=== PATIENT | female | born 1970 | race Caucasian/White ===

== ENCOUNTER 2025-02-13 01:05 | Emergency (ER) | payer BC, SELFPAY ==
[2025-02-13 01:13] VITALS: BP 148/118
--- NOTE | 2025-02-13 01:26 | ED.GENMED ---
History of Present Illness
General
Chief Complaint: Abdominal Symptoms
Time Seen by Provider: 02/13/25 01:26
History of Present Illness
History of Present Illness:
PAST MEDICAL HISTORY AND REVIEW OF OLD RECORDS
- The patient is had a hysterectomy in the past. She also has a history of anxiety. No old records available for review in [facility]
Note:
CHIEF COMPLAINT(S)
Nausea and tingling sensation in arms.
HISTORY OF PRESENT ILLNESS
The patient is a 54-year-old female presenting with significant nausea and a tingling sensation described as 'pins and needles' in both arms. The patient notes that the tingling is not associated with any particular activity or position. The nausea
has been persistent despite attempts at home management, noting that it is particularly bothersome and impacting her daily life. She had a prescription for nausea medication, which provided minimal relief with delayed onset and short duration of
action. The patient has denied significant vomiting, describing it as 'very little.' The patient mentioned she hadnt taken her regular medication for a week, missing weeks at a time prior to last week.
The patient also noted the presence of bumps on the skin, which appeared after sun exposure but were neither itchy nor painful. She recently visited an urgent care center where no blood work was done, although the physician noted the rash was
possibly related to sun exposure.
The patient has a surgical history of multiple abdominal surgeries, including a hysterectomy and procedures related to dermoid cysts removal during her two pregnancies. She reports no history of bowel obstructions or severe pain related to these
surgeries.
PAST MEDICAL AND SURGICAL HISTORY
The patient has undergone multiple abdominal surgeries due to dermoid cyst removal during previous pregnancies. Her surgical history includes a hysterectomy and two additional procedures associated with the removal of cysts.
EXTERNAL RECORDS REVIEWED
The patient had a blood work order with her primary care physician, but the results were not yet available at the time of this visit.
CHRONIC MEDICAL CONDITIONS SIGNIFICANTLY AFFECTING CARE
The patient is on a regular medication regimen, which she recently missed, although specific medication details were not mentioned.
SOCIAL HISTORY
The patient reports no use of marijuana.
PHYSICAL EXAM
General: Alert, no acute distress.
Skin: Warm, dry. Some subtle small papules to the upper extremities described as nonpruritic
Cardiovascular: Normal peripheral perfusion, no edema.
Respiratory: Respirations are non-labored.
Abdomen: Nondistended; minimal diffuse abdominal tenderness
Neurological: Alert and oriented to person, place, time, and situation, No focal neurological deficit observed.
PLAN
1. Perform a CAT scan to rule out any serious underlying causes contributing to nausea.
2. Administer intravenous fluids to help alleviate dehydration and provide symptomatic relief.
3. Obtain blood work to assess any potential abnormalities.
4. Administer Reglan for nausea management.
5. Discuss medication adherence and assess the potential impact on current symptoms.
DIFFERENTIAL DIAGNOSIS
The Differential Diagnosis includes, in no particular order and is not limited to:
1. Medication side effects or withdrawal
2. Anxiety-related somatic symptoms
3. Viral gastroenteritis
4. Food poisoning
5. Peptic ulcer disease
6. Gastroesophageal reflux disease
7. Pancreatitis
8. Small bowel obstruction due to adhesions
9. Electrolyte imbalance
10. Dermatological reaction with secondary systemic symptoms.
RADIOLOGY
- CT shows no acute abnormality, there is no bowel obstruction
LABS
- White count and hemoglobin are normal, bicarb is 21, urinalysis shows 3+ ketones and she was given IV fluids. Urinalysis does not show any clear evidence of infection
SUMMARY OF ENCOUNTER
The patient is a 54-year-old female who presented to the emergency department with significant nausea and a tingling sensation in both arms. The nausea was persistent and interfering with her daily activities. After evaluating the patient, a CT scan
was performed, which showed no signs of bowel obstruction, a concern due to her surgical history. Incidental findings of diverticulosis were noted but deemed not contributory to her current symptoms. Urinalysis did not show signs of infection, but
it did reveal ketones, likely due to dehydration. The patient was administered intravenous fluids, Benadryl, and metoclopramide (Reglan) in the emergency department, which provided significant relief from her nausea.
DISPOSITION
Discharge
ASSESSMENT
The patients symptoms appear to be related to medication withdrawal or side effects, potentially aggravated by dehydration and missed doses of medication. Her symptoms improved with intravenous fluids and medication in the ED.
EMERGENCY TREATMENTS ADMINISTERED
- Intravenous fluids
- Metoclopramide (Reglan)
- Diphenhydramine (Benadryl)
PLAN
The plan is to discharge the patient with a short-term prescription for metoclopramide to manage her nausea, advising caution with prolonged use due to potential side effects. She is advised to consider using diphenhydramine at home with
metoclopramide if needed. The patient is encouraged to discuss her medication regimen with her primary care physician to address any issues with adherence or side effects.
INDEPENDENT REVIEW OF LABS AND INTERPRETATION OF TESTS
My independent review of the urinalysis indicates the presence of ketones, which could be attributed to dehydration. My independent CT scan interpretation reveals no signs of bowel obstruction and incidental diverticulosis.
PATIENT EDUCATION AND COUNSELING
The patient was educated about the potential side effects and risks of long-term use of metoclopramide and the importance of medication adherence. The possibility of dehydration contributing to her symptoms was discussed, emphasizing adequate
hydration.
FOLLOW-UP INSTRUCTIONS
The patient is advised to follow up with her primary care physician to discuss her medication regimen and evaluate her symptoms further. She should monitor her symptoms and seek care if they worsen.
MEDICATION RECONCILIATION
- Metoclopramide (Reglan): Prescription for short-term use provided.
- Diphenhydramine (Benadryl): Advised for use alongside metoclopramide if necessary.
MEDICAL DECISION MAKING
- Number and Complexity of Problems Addressed: Chronic conditions affecting care include post-operative changes and medication adherence issues.
- Data:
Category 1: External record reviewed included the patients urinalysis and CT scan results.
Category 2: None.
Category 3: The management plan was discussed with the patient considering her medication history and response to ED treatment.
- Risk: Prescription medication was prescribed, including metoclopramide, for short-term management of nausea.
DIAGNOSIS
- Nausea with ICD-10 code R11.0
- Tingling sensation in arms, likely secondary to medication or dehydration with ICD-10 code R20.2
- Dehydration with ICD-10 code E86.0
UPDATE
- Patient feels markedly improved after Reglan/Benadryl and IV fluids were given. Will give short course of Reglan as outpatient.
Phy Exam
Physical Exam
Physical Exam:
See HPI
Course
Orders/Labs/Results
Orders:
Orders
02/13/25 01:24
IV Insert/Care/Rem.- Treatment PRN
02/13/25 01:42
CT Abd/pelvis W Iv Cont Urgent
Comment:
Reason For Exam: persistent nausea; hysterectomy; some diffuse pain
0.9% Sodium Chloride 1000 ml [Nss] 1,000 ml IV BOLUS
Diphenhydramine [Benadryl] 25 mg IV NOW STA
Metoclopramide [Reglan] 10 mg IV NOW STA
02/13/25 01:49
Complete Blood Count/With Diff Urgent
Comprehensive Metabolic Panel Urgent
Lipase Urgent
Urinalysis Reflex To Culture Urgent
Date Specimen was Collected: 02/13/25
Time Specimen was Collected: 01:24
Urine Microscopic Reflex Cult Urgent
Urine Culture Urgent
VALENTINO Source: U
Specimen Description:
Date Specimen was Collected: 02/13/25
Time Specimen was Collected: 01:24
Abnormal Lab Results
02/13/25
01:49
Carbon Dioxide 21 L mmol/L
(22-30)
Creatinine 0.5 L mg/dL
(0.6-1.0)
Glucose 118 H mg/dl
(70-99)
Urine Ketones 3+ A
(Negative)
Ur Occult Blood Reflex 1+ A
(Negative)
Leukocyte Esterase Rfl 2+ A
(Negative)
Urine Bacteria (Reflex) Few A
(Negative)
02/13/25 01:49
02/13/25 01:49
Vital Signs
Initial and Last Documented VS:
Initial Vital Signs
Temp Pulse Resp BP Pulse Ox
36.6 C 105 20 148/118 97
02/13/25 01:13 02/13/25 01:13 02/13/25 01:13 02/13/25 01:13 02/13/25 01:13
Last Documented Vital Signs
Temp Pulse Resp BP Pulse Ox
36.6 C 106 20 125/68 95
02/13/25 01:13 02/13/25 02:46 02/13/25 02:46 02/13/25 02:46 02/13/25 02:46
*Pulse Oximetry
SaO2: 97
Oxygen Mode of Delivery: Room air
Patient hypoxic: no
*Critical Care Note
Total Time (30-74mins, 75-104mins- exclusive of procedures): Not Applicable
ED Attending Note
-
Portions of this chart may have been created with voice recognition software.� Occasional wrong word or��sound alike� substitutions may have occurred due to the inherent limitations of voice recognition software.
Discharge Plan
Departure
Patient Disposition: Home (Routine Discharge)
Date of Disposition: 02/13/25
Time of Disposition: 03:50
Patient with high blood pressure during this ER visit?: Yes
Discharge Problem:
Nausea
Instructions: Nausea and Vomiting, Adult (DC), BLOOD PRESSURE
Prescriptions:
New
metoclopramide HCl [Reglan] 10 mg tablet
10 mg PO Q8HPRN PRN (Reason: nausea and vomiting) Qty: 15 0RF
No Action
latanoprost 0.005 % Drops
1 drp OPHTHALMIC (EYE) DAILY
Wegovy
2.4 mg SC WEEKLY
Referrals:
Ibrahima Lopez MD [Family Provider, Internal Medicine]
Activity Restrictions/Additional Instructions:
The cause of your nausea may be related to the Wegovy use. I recommend you talk to your prescribing doctors about this. Your basic blood work is unremarkable. Urinalysis does show some ketones which can commonly be seen with
starvation/dehydration. We gave you a liter of fluid tonight. The CAT scan did not show any clear cause for your pain. There is no sign of bowel obstruction or any surgical emergency. Since you seem to responded to Reglan tonight, I
electronically sent a prescription to your pharmacy for a few more days of Reglan. Consider taking Reglan with Benadryl. Return here if worse or for other concerns.
Interventions
Interventions:
*Risk Screen - Suicide Last Done: 02/13/25 01:16
*General Assessment Last Done: 02/13/25 02:04
*Neglect/Abuse Screening Last Done: 02/13/25 01:16
*ED- Fall Risk Assessment Last Done: 02/13/25 01:16
*ED COVID-19 Vaccine History Last Done: 02/13/25 02:03
YL-Cncscn-Pcrhltxznl Assessment Last Done: 02/13/25 02:04
Discharge Date and Time
Print Language: ERITREAN
[2025-02-13] MEDS: NSS 1000 IV (01:54)
[2025-02-13] MEDS: BENADRYL 25 MG IV (01:55)
[2025-02-13] MEDS: REGLAN 10 MG IV (01:55)
[2025-02-13 02:02] LABS: Urine Character Clear (Clear)
[2025-02-13 02:03] VITALS: BMI 29.8
[2025-02-13 02:04] LABS: Hematocrit 39.8 % (37.0-47.0); Hemoglobin 13.7 g/dL (12.0-16.0); Mean Corp Hgb Conc. 34.4 g/dL (33.0-37.0); Mean Corpuscular Volume 82.2 fL (81.0-99.0); Platelet Count 260 10^3/uL (130-400); Red Cell Dist. Width 12.4 % (11.5-14.5)
[2025-02-13 02:09] VITALS: BP 121/88
[2025-02-13 02:13] LABS: Urine Red Blood Cell None Seen /HPF (0-2)
[2025-02-13 02:26] LABS: ALT (SGPT) 14 U/L (0-35); AST (SGOT) 19 U/L (14-36); Albumin 4.6 g/dl (3.5-5.0); Alkaline Phosphatase 65 U/L (38-126); Blood Urea Nitrogen 10 mg/dl (7-17); Calcium 9.1 mg/dl (8.4-10.2); Carbon Dioxide 21 mmol/L (22-30); Chloride 105 mmol/L (98-107); Estimated Creatinine Clearance 100 ml/min; Glucose 118 mg/dl (70-99); Lipase 64 U/L (23-300); Potassium 3.9 mmol/L (3.5-5.1); Sodium 136 mmol/L (135-145); Total Protein 7.5 g/dl (6.3-8.2); eGFR > 60.00
[2025-02-13 02:46] VITALS: BP 125/68
[2025-02-13 04:18] LABS: Absolute Neutrophils -Man Diff 3.2 10^3/uL (1.4-6.5); Platelets Checked Yes
[2025-02-13 04:19] LABS: Normal RBC Morphology Yes; Total Cells Counted 100
== END 2025-02-13 04:13 | disposition home or self-care (01) ==
LOC: EMR 01:05
PROVIDERS: EMERGENCY PHYSICIAN Emergency Medicine; FAMILY PHYSICIAN Internal Medicine
DX: R11.0 Nausea (principal); R03.0 Elevated blood-pressure reading, without diagnosis of hypertension; Z90.710 Acquired absence of both cervix and uterus; E86.0 Dehydration
CPT/HCPCS: 99285; 96374; 96375; 96361; 74177; 80053; 81003; 81015; 83690; 85025; 87086; Q9967

== ENCOUNTER 2025-02-16 03:03 | Inpatient (IN) | payer BC, SELFPAY ==
[2025-02-15 21:17] VITALS: BMI 28.9
--- NOTE | 2025-02-15 21:19 | EDRN ---
Pt complains of nausea, trouble eating. Pt has not eaten much in past week. Pt vomited yesterday after trying to eat. Pt seen in this ED 3 days ago for same complaint and has not gotten better. Pt is on wegovy and usually takes it on Sunday. Pt
did not take the dose 2 days ago thinking it may be contributing to her symptoms however pt has been taking it for over a year. No abd pain. No vomiting today. Pt was prescribed reglan which she last took at 0400 with excedrin. Reglan does help
with nausea. No cp, sob, fever/chills/cough, urinary symptoms, diarrhea/constipation. Pt able to drink a little since but unable to eat much.
[2025-02-15 21:27] VITALS: BP 135/85
[2025-02-15 21:49] LABS: Hematocrit 37.4 % (37.0-47.0); Hemoglobin 13.5 g/dL (12.0-16.0); Mean Corp Hgb Conc. 36.1 g/dL (33.0-37.0); Mean Corpuscular Volume 80.4 fL (81.0-99.0); Platelet Count 325 10^3/uL (130-400); Red Cell Dist. Width 12.0 % (11.5-14.5)
[2025-02-15] MEDS: TYLENOL 1000 MG PO (21:50)
[2025-02-15] MEDS: NSS 1000 IV (21:50)
[2025-02-15 22:00] VITALS: BP 107/85
[2025-02-15 22:01] LABS: ALT (SGPT) 22 U/L (0-35); AST (SGOT) 21 U/L (14-36); Albumin 4.5 g/dl (3.5-5.0); Alkaline Phosphatase 62 U/L (38-126); Blood Urea Nitrogen 10 mg/dl (7-17); Calcium 9.3 mg/dl (8.4-10.2); Carbon Dioxide 25 mmol/L (22-30); Chloride 94 mmol/L (98-107); Estimated Creatinine Clearance 98 ml/min; Glucose 109 mg/dl (70-99); Lipase 71 U/L (23-300); Potassium 3.5 mmol/L (3.5-5.1); Sodium 126 mmol/L (135-145); Total Protein 7.5 g/dl (6.3-8.2); eGFR > 60.00
[2025-02-15 22:02] LABS: COVID-19 Antigen Negative (Negative)
[2025-02-15 22:21] LABS: Urine Character Clear (Clear)
[2025-02-15 22:38] LABS: Nucleated Red Blood Cells % 0 %
--- NOTE | 2025-02-15 22:42 | ED.GENMED ---
History of Present Illness
General
Chief Complaint: Abdominal Symptoms
Source: patient, records and spouse
Exam Limitations: none
Time Seen by Provider: 02/15/25 22:16
Nursing documentation reviewed up to this point in time: agreed with
History of Present Illness
History of Present Illness:
54 female returns with nausea vomiting decreased p.o. intake, did not know she had a fever, seen here few days ago with similar complaints had blood work and a CAT scan discharged to home has been feeling well for about a week or so symptoms have
progressively worsening, no sick contacts no travel had a red rash when she was at the beach, no known tick bites, no bull's-eye rash, she vapes, does not drink on no meds, mild headache mild dizziness feeling better after some fluids and Tylenol
Review of Systems
Review of Systems
All Other Systems: Not applicable
Constitutional: Reports weight loss and fatigue; Denies fever
Respiratory: Reports no symptoms
ABD/GI: Reports nausea and vomiting; Denies abdominal pain
Musculoskeletal: Reports muscle pain
Skin: Reports rash
Neurological: Reports dizzy and headache
Hematologic/Lymphatic: Denies bleeding or bruising
Psychiatric: Reports no symptoms
Phy Exam
Physical Exam
Physical Exam:
Physical Exam
General: Nontoxic 54 female febrile mild distress
Neck: Lips are slightly dry
Heart: Tachycardia
Lungs: no acute respiratory distress. clear bilaterally
Abdomen: Not tender
Neuro: alert and oriented. no focal neurological deficits
Skin: no rash
Psychiatric: well kept. interactive and cooperative
Extremities: no edema.
Course
Orders/Labs/Results
Orders:
Orders
02/15/25 21:23
IV Insert/Care/Rem.- Treatment PRN
02/15/25 21:30
COVID-19 Antigen Urgent
Source: Nasal Swab
Complete Blood Count/With Diff Urgent
Comprehensive Metabolic Panel Urgent
Creatine Phosphokinase Urgent
LDH Urgent
Lactate Level [Lactic Acid] Urgent
Lipase Urgent
Influenza A+B Rapid Molecular Urgent
VALENTINO Source: Nasal Swab
Specimen Description:
02/15/25 21:35
Blood Culture Q30M
VALENTINO Source: Blood/Venous
Specimen Description:
02/15/25 21:47
Acetaminophen [Tylenol] 1,000 mg .ROUTE .STK-MED ONE
02/15/25 21:49
0.9% Sodium Chloride 1000 ml [Nss] 1,000 ml IV BOLUS
02/15/25 21:50
Acetaminophen [Tylenol] 1,000 mg PO NOW STA
02/15/25 22:16
Urinalysis Reflex To Culture Urgent
Date Specimen was Collected: 02/15/25
Time Specimen was Collected: 22:13
Urine Microscopic Reflex Cult Urgent
Urine Culture Urgent
VALENTINO Source: U
Specimen Description:
Date Specimen was Collected: 02/15/25
Time Specimen was Collected: 22:13
02/15/25 22:41
CT Head W/o Iv Contrast Urgent
Comment:
Reason For Exam: headache fever
CR Chest - 2 Views Urgent
Comment:
Reason For Exam: fever
02/15/25 22:42
Add On- LAB Urgent
Tests Added?: cpk
02/15/25 22:45
Add On- LAB Urgent
Tests Added?: ldh
Ondansetron Injectable [Zofran] 4 mg IV NOW STA
02/15/25 23:05
Lyme Progressive Urgent
Babesia Smear [Blood Parasites] Routine
VALENTINO Source: Blood/Venous
Specimen Description:
Blood Culture Q30M
VALENTINO Source: Blood/Venous
Specimen Description:
02/15/25 23:17
Metoclopramide [Reglan] 10 mg IV NOW STA
02/16/25 00:53
Add On- LAB Urgent
Tests Added?: urine culture
02/16/25 01:05
CefTRIAXone [Rocephin] 1,000 mg IV NOW STA
02/16/25 01:08
Sterile Water [Sterile Water For Injection] 10 ml .ROUTE .STK-MED ONE
02/16/25 02:43
Add On- LAB Urgent
Tests Added?: Urine Na, Urine Osm
Admit/Transfer Patient As Directed
Co-Sign Provider:
Level of Care: Inpatient admission
Assign to:: Telemetry
Physician / Group: Gelacio
Diagnosis: Hyponatremia, N/V
Reason for Telemetry: Arrhythmia
Date to Stop Telemetry: 02/19/25
Time to Stop Telemetry: 11:00
Reason for Hospitalization: Hyponatremia, N/V
Expected length of stay greater than two midnights?: Yes
ELOS- Estimated Length of Stay in days: 2
I certify the patient meets the requirements for IP care: Yes
02/16/25 02:46
Code Status As Directed
Resuscitation Status: Full Code
PRN Pain Medication Management As Directed
May give lesser potent ordered pain med per pt: Yes
preference::
Protocol:: Medication orders for pain may be administered in a
manner that supports deferring to patient preference
when the pt is:
- Requesting an ordered lesser potent pain medication.
Least to most potent pain medications are defined
as: acetaminophen < NSAID < tramadol < opioids
(morphine, oxycodone, hydromorphone).
- Requesting a lesser dose of the same medication IF
ORDERED.
- Requesting a less intrusive route of administration
if both routes are prescribed by the provider (PO <
IV).
02/19/25 11:00
DC Protocol for Telemetry ONCE
Abnormal Lab Results
02/15/25 02/15/25
21:30 22:16
MCV 80.4 L fL
(81.0-99.0)
Absolute Monos (auto) 1.1 H 10^3/uL
(0.1-0.6)
Monocytes % 11.0 H %
(1.7-9.3)
Sodium 126 L D mmol/L
(135-145)
Chloride 94 L mmol/L
(98-107)
Glucose 109 H mg/dl
(70-99)
Urine Ketones 3+ A
(Negative)
Ur Occult Blood Reflex 2+ A
(Negative)
Urine Urobilinogen 2+ A
(Neg - 1+)
Leukocyte Esterase Rfl 2+ A
(Negative)
Urine RBC 11-15 A /HPF
(0-2)
Urine WBC (Reflex) 16-20 A /HPF
(0-5)
Urine Bacteria (Reflex) Few A
(Negative)
Urine Albumin (Reflex) 1+ A
(Neg - Trace)
02/15/25 21:30
02/15/25 21:30
Vital Signs
Initial and Last Documented VS:
Initial Vital Signs
Temp Pulse Resp Pulse Ox
99.8 F 110 20 98
02/15/25 20:48 02/15/25 20:48 02/15/25 20:48 02/15/25 20:48
Last Documented Vital Signs
Temp Pulse Resp BP Pulse Ox
98.6 F 71 14 111/76 96
02/16/25 03:10 02/16/25 02:00 02/16/25 02:00 02/16/25 02:00 02/16/25 02:00
MDM/Problems Addressed
Differential Diagnosis Includes:
Viral syndrome, tickborne illness pulmonary process sinusitis other
MDM/Problems Addressed:
Fever nausea hyponatremia
*Radiology
Radiology exam reviewed: radiology read reviewed
*Pulse Oximetry
SaO2: 98
Oxygen Mode of Delivery: Room air
Patient hypoxic: no
*Golf Course Mechanic Interpretation
Rate: normal
Interpretation: normal
Heart Rate: 78
Rhythm: sinus
*Critical Care Note
Total Time (30-74mins, 75-104mins- exclusive of procedures): Not Applicable
Update Note
Update Note:
1 AM update patient looks a bit better, tolerating some ice chips, chest x-ray reviewed looks negative my CT head reviewed spouse thinks they know about him angioma though she has not followed up on it suspect that is not her main issue today, urine
noted no urinary symptoms we will check a culture
Consideration for empiric antibiotics
ED Attending Note
-
Portions of this chart may have been created with voice recognition software.� Occasional wrong word or��sound alike� substitutions may have occurred due to the inherent limitations of voice recognition software.
Discharge Plan
Departure
Patient Disposition: Admit
Date of Disposition: 02/16/25
Time of Disposition: 01:06
Admit to: Med/Surg
Presentation/result/management discussed w/ accepting MD/DO: Hospitalist
Patient with high blood pressure during this ER visit?: No
Condition: Fair
Covid-19: Not Applicable
Discharge Problem:
Acute febrile illness, Acute hyponatremia, Acute dehydration
Interventions
Interventions:
*Risk Screen - Suicide Last Done: 02/15/25 20:48
*General Assessment Last Done: 02/15/25 21:17
*Neglect/Abuse Screening Last Done: 02/15/25 20:48
*ED- Fall Risk Assessment Last Done: 02/15/25 21:42
BW-Rsnoen-Gzfaqggocx Assessment Last Done: 02/15/25 21:44
[2025-02-15 23:00] LABS: Urine Squamous Cell 0-2 /LPF (Few); Urine Urothelial Cell 0-2 /LPF (FEW); Urine White Cell 16-20 /HPF (0-5)
--- NOTE | 2025-02-15 23:13 | EDRN ---
Dr Corado was informed of pt request for reglan rather than zofran
[2025-02-15 23:15] LABS: LDH 200 U/L (120-246)
[2025-02-15] MEDS: REGLAN 10 MG IV (23:26)
[2025-02-16] VITALS (8 sets, daily range): BP systolic 105–127; BP diastolic 70–84; BMI 29.2
[2025-02-16] MEDS: ROCEPHIN 1000 MG IV (01:12)
--- NOTE | 2025-02-16 02:51 | HPS.HSE ---
Family Physician
-
Family Physician: Ibrahima Lopez
Chief Complaint
-
Nausea
History of Present Illness
Patient is a 54y F with no significant PMH who presents to ED complaining of nausea, headaches and malaise. Patient states that she has been feeling slightly nauseated for about 3 weeks or so. She notes that she will occasionally have similar
symptoms and she did not think much of it. About one week ago her symptoms became significantly worse. Patient noted numbness and tingling in both arms while at work. She had severe nausea and had non-bloody emesis. She reports diffuse headache
and general malaise. Patient also noted a red, speckled rash on her arms, legs and trunk. She had persistent nausea - but had emesis only once again on Sunday. No diarrhea,. No abdominal pain. No recent travel or unusual foods. No known sick
contacts.
She was seen at Urgent Care and then here in the ED when her symptoms did not improve.
Patient was given Reglan here in the ED with improvement in her symptoms on 02/13. CT A/P done at that time was unremarkable.
Her symptoms did not improve and she returns to the ED for further evaluation. In the ED today she is noted to have fever to 102.8.
Patient denies any sore throat, cough, diarrhea, urinary symptoms, etc.
She has a dog at home but has not seen any ticks or removed any from her person. She is not 'outdoorsy' herself.
Medical History
Past Medical History
Past Medical History: Reports Other
Additional Past Medical History:
Glaucoma
Anxiety
Meningioma
Past Surgical History: Reports Other
Additional Past Surgical History:
Hysterectomy
Dermoid Cyst Excision x 2
Social History
Tobacco: Former Smoker (Quit smoking 2 years ago.)
Alcohol: Occasional
Drug: None
Personal:
Living: With Family
Family History
Family History: Not pertinent
Allergies / Home Medications
Allergies reflects when Allergies were last updated in [facility].
Home Medications with original date entered in [facility]
Allergy/Medication List:
Allergies
Allergy/AdvReac Type Severity Reaction Status Date / Time
amoxicillin (From Augmentin) Allergy severe GI Verified 02/15/25 20:51
distress
clavulanic acid (From Allergy severe GI Verified 02/15/25 20:51
Augmentin) distress
Home Medications
latanoprost 0.005 % eye drops 1 drp ophthalmic (eye) DAILY 02/13/25
metoclopramide HCl 10 mg tablet (Reglan) 10 mg PO Q8HPRN PRN nausea and vomiting #15 tabs 02/13/25
semaglutide (weight loss) 2.4 mg/0.75 mL subcutaneous pen injector (Wegovy) 2.4 mg SC QWEEK 02/15/25
Review of Systems
-
History Source: Patient
Constitutional: Reports Fatigue; Denies Fever or Chills
EENT: Denies Sore Throat
Respiratory: Denies Cough, Hemoptysis or Trouble Breathing
Cardiac: Denies Chest Pain, Diaphoresis or Palpitations
Abdomen/GI: Reports Nausea and Vomiting; Denies Abdominal Pain, Diarrhea, Bloody Stools, Black Stools or Anorexia
: Denies Dysuria, Frequency or Flank Pain
Musculoskeletal: Denies Joint Pain or Edema
Skin: Reports Rash (now resolved)
Neurological: Reports Headache and Numbness; Denies Dizzy or Weakness
Psych: Denies Depression or Anxiety
Physical Exam
Vital Signs
Vital Signs
Temp Pulse Resp BP Pulse Ox
99.6 F 71 14 111/76 96
02/15/25 23:33 02/16/25 02:00 02/16/25 02:00 02/16/25 02:00 02/16/25 02:00
Physical Exam
General: Other (54y F in no acute distress.)
HEENT: Moist mucous membranes and PERRLA
Respiratory: Clear; No Wheezes, Rales or Rhonchi
Cardiac: S1/S2 and Regular Rhythm; No Murmur
GI: Soft, Non Tender, Non Distended and Normal Bowel Sounds
Musculoskeletal: No Clubbing, No Cyanosis and No Edema
Neuro: AO x 3 and Nonfocal/grossly intact
Laboratory Results
-
02/15/25 21:30
02/15/25:30
Laboratory Results
Lactic Acid 0.8 mmol/L (0.7-2.0) 02/15/25:30
Total Bilirubin 1.2 mg/dl (0.2-1.3) 02/15/25:30
AST 21 U/L (14-36) 02/15/25:30
ALT 22 U/L (0-35) 02/15/25:30
Alkaline Phosphatase 62 U/L (38-126) 02/15/25 21:30
Lipase 71 U/L (23-300) 02/15/25 21:30
Impression/Plan
-
A/P: Patient is a 54y F with no significant PMH who presents to ED complaining of nausea, malaise and headache.
Suspected Viral Syndrome
- Admit for further evaluation and treatment.
- Patient with fever, nausea / occasional emesis, headache, general malaise and recent diffuse rash.
- Imaging and culture / serology data thus far has been unremarkable. Rash has since resolved.
- COVID / flu negative.
- Temp today in the ED to 102.8.
- Urinalysis abnormal - but patient denies any urinary symptoms. Culture done 02/13 was contaminated.
- Observe off of abx for now - picture seems c/w viral process.
- Supportive care, IVFs, antiemetics, etc.
- Follow for clinical improvement. Follow-up culture data / serologies / tick borne testing / etc.
- Hold Wegovy (patient has been on this for approx 1 year with no issues thus far).
- Monitor for any new / focal symptoms or complaints.
Hyponatremia
- ? etiology. Would suspect hypovolemic due to GI losses - but patient denies much in the way of actual emesis.
- ? SIADH due to nausea, meningioma, etc.
- Urine studies added to labs.
- IVF overnight and follow for changes.
- Consider Nephrology evaluation if hyponatremia worsens / does not improve.
Left Frontal Meningioma
- Patient / states that this is a known finding - though they are not clear on the details.
- Today's imaging without evidence of edema or other acute abnormality.
- Seems less likely involved in acute process - though with headaches, hyponatremia, N/V warrants further evaluation.
- Obtain comparison films if possible.
- Neurosurgery evaluation for initial recs and outpatient follow-up.
DVT Prophylaxis: SCDs
Code Status: Full
[2025-02-16] MEDS: NSS with KCL 20 MEQ 1000 IV ×3 (04:20→21:46)
[2025-02-16] MEDS: PROTONIX 40 MG PO (08:12)
[2025-02-16 09:07] LABS: Hematocrit 34.8 % (37.0-47.0); Hemoglobin 12.0 g/dL (12.0-16.0); Mean Corp Hgb Conc. 34.5 g/dL (33.0-37.0); Mean Corpuscular Volume 83.5 fL (81.0-99.0); Platelet Count 286 10^3/uL (130-400); Red Cell Dist. Width 12.0 % (11.5-14.5)
[2025-02-16 09:36] LABS: Blood Urea Nitrogen 7 mg/dl (7-17); Calcium 8.4 mg/dl (8.4-10.2); Carbon Dioxide 27 mmol/L (22-30); Chloride 99 mmol/L (98-107); Estimated Creatinine Clearance 99 ml/min; Glucose 92 mg/dl (70-99); Magnesium 2.0 mg/dl (1.6-2.3); Potassium 3.4 mmol/L (3.5-5.1); Sodium 134 mmol/L (135-145); eGFR > 60.00
[2025-02-16] MEDS: MOTRIN 400 MG PO (11:41)
[2025-02-16] MEDS: KCL 40 MEQ PO (11:41)
[2025-02-16 12:57] LABS: Lyme Antibody Screen, EIA Negative (Negative)
--- NOTE | 2025-02-16 13:25 | W.PN.HOSP.TC ---
Today's Communication/Plan
-
Assessment / Plan
Assessment / Plan
General: No Apparent Distress, Comfortable and Conversant
HEENT: NormoCephalic, Moist mucous membranes, Atraumatic
Respiratory: Clear and Non Labored Respirations
Cardiac: S1/S2 and Regular Rhythm; No Rub or Gallop
GI: Soft, Non Tender, Non Distended and Normal Bowel Sounds
Musculoskeletal: No Edema, no deformity
Skin: Warm and dry
: NO Mccartney
Neuro: Awake, Alert, Nonfocal/grossly intact
Psych: Calm and Intact Judgment/Insight
Ms. Rogers is a 54-year-old female with medical history of meningioma (per small, not requiring intervention, no recent follow-up) who presented with 3 weeks of headaches with associated nausea. She reported a red speckled rash on her
extremities and trunk which has since resolved. She was found to have a fever with a temperature of 102.8 �F in the ED. She has been admitted for further evaluation and management.
Fever with headache:
- CT imaging shows left frontal meningioma, unclear if this has changed from previous
- Neurosurgery recommends MRI brain with and without contrast
- Will obtain prior imaging results for comparison
- Follow-up further recommendations from neurosurgery
- Supportive care
- Peripheral smear negative for parasites so far, Lyme's serology pending
- Received 1 dose of ceftriaxone in the ED, monitor fever curve, if persistent may need to consider further infectious workup
Hyponatremia:
- Moderately low with an initial serum sodium of 126 but appears acute, previous sodium was 136 on 02/13
- Suspect hypovolemic hyponatremia in the setting of poor recent p.o. intake due to persistent nausea
- Serum sodium improved to 134 today after IV fluids
- Will check Legionella for completeness but doubt this is the etiology
- Continue to monitor
Hypokalemia:
- Mild with serum potassium at 3.4
- Repleted orally, will monitor
DVT prophylaxis: SCDs
CODE STATUS: Full code
Total time spent on today's encounter was 55 minutes
Anticipated Discharge: 24 - 48 hours
Subjective/Interval History
-
Date of Service: February 16, 2025
Patient was seen and examined at bedside this morning. Headache improved, feeling better. Awaiting brain MRI.
Objective Data
-
Labs:
Laboratory Results
02/16/25
08:22
WBC 7.1
Hgb 12.0
Hct 34.8 L
Plt Count 286
Sodium 134 L D
Potassium 3.4 L
Chloride 99
Carbon Dioxide 27
BUN 7
Creatinine 0.5 L
Glucose 92
Calcium 8.4
Vital Signs:
Vital Signs
Temp Pulse Resp BP Pulse Ox
100.3 F 99 18 123/84 96
02/16/25 11:23 02/16/25 11:23 02/16/25 11:23 02/16/25 11:23 02/16/25 11:23
I&O
02/15/25 02/16/25 02/17/25
06:59 06:59 06:59
Intake Total 480 / 480
Balance 480 / 480
Review of Systems
-
History Source: Patient
All other systems: Reviewed and negative
Neuro: Reports Headache
Physical Exam
-
General: No Apparent Distress
[2025-02-16] MEDS: ATIVAN 1 MG PO (15:50)
[2025-02-16] MEDS: XALATAN OPHTHALMIC SOLUTION 1 DROP BOTH EYES (21:46)
[2025-02-17 03:17] VITALS: BP 120/83
[2025-02-17 06:00] VITALS: BMI 29.6
[2025-02-17 07:42] VITALS: BP 112/81
[2025-02-17 08:01] LABS: Hematocrit 32.7 % (37.0-47.0); Hemoglobin 11.3 g/dL (12.0-16.0); Mean Corp Hgb Conc. 34.6 g/dL (33.0-37.0); Mean Corpuscular Volume 84.1 fL (81.0-99.0); Nucleated Red Blood Cells % 0 %; Platelet Count 299 10^3/uL (130-400); Red Cell Dist. Width 12.4 % (11.5-14.5)
[2025-02-17 08:46] LABS: Blood Urea Nitrogen 4 mg/dl (7-17); Calcium 8.0 mg/dl (8.4-10.2); Carbon Dioxide 23 mmol/L (22-30); Chloride 105 mmol/L (98-107); Estimated Creatinine Clearance 99 ml/min; Glucose 91 mg/dl (70-99); Potassium 4.2 mmol/L (3.5-5.1); Sodium 135 mmol/L (135-145); eGFR > 60.00
[2025-02-17] MEDS: PROTONIX 40 MG PO (09:14)
[2025-02-17] MEDS: NSS with KCL 20 MEQ IV (09:21)
[2025-02-17 11:15] VITALS: BP 118/81
--- NOTE | 2025-02-17 12:43 | CON.NS ---
Consultation
-
Date/Time Consultation Performed: 02/17/2025; 12:50 pm
Performing Provider: Reese
Chief Complaint
History of Present Illness
This is a neurosurgical consultation on a 54-year-old female with history of meningioma, who presented yesterday with symptoms of nausea, headache, malaise. She also reported numbness and tingling in both arms while she was at work. She was also
noted to have a red, speckled rash on her arms, legs, trunk. She presented to an urgent care and then subsequently to the emergency room. She was admitted for further workup. She had a noncontrast head CT that demonstrated a left frontal
hyperdense lesion. Patient, and the had reported that this was a known finding. Neurosurgery consulted after MRI for recommendations and outpatient follow-up. She was also noted to be febrile with a temperature of 102.8, and it was
suspected likely viral syndrome.
She was also noted to be hyponatremic and this was corrected as well. Currently, patient is being managed for fever with a headache. She was given 1 dose of ceftriaxone in the emergency room.
Patient seen examined. She reports that her headache, fevers, and rash have essentially resolved. She reports that she was diagnosed with a meningioma over 10 years ago. She does not recall where she had the imaging done. She saw 2 separate
neurosurgeons, 1 who recommended expectant management, the other recommended surgery. She opted to forego surgery. However, she did not follow-up for repeat imaging. She believes that her primary care doctor may have the records.
Review of Systems
-
10 point review of systems including constitutional, ENT, cardiovascular, respiratory, GI, , neurologic, neurologic, hematologic, musculoskeletal was performed, and was negative except for stated in HPI.
Medication and Allergies
Home Medications
Home Medications
�Medication �Instructions �Recorded
latanoprost 0.005 % eye drops 1 drp ophthalmic (eye) DAILY Eye 02/13/25
Condition
metoclopramide HCl 10 mg tablet 10 mg PO Q8HPRN PRN nausea and 02/13/25
(Reglan) vomiting #15 tabs
semaglutide (weight loss) 2.4 2.4 mg SC QWEEK WEIGHT LOSS 02/15/25
mg/0.75 mL subcutaneous pen
injector (Wegovy)
Allergies
Allergies
Allergy/AdvReac Type Severity Reaction Status Date / Time
amoxicillin (From Augmentin) Allergy severe GI Verified 02/15/25 20:51
distress
clavulanic acid (From Allergy severe GI Verified 02/15/25 20:51
Augmentin) distress
Physical Exam
-
Exam:
Awake, alert, no apparent distress.
Cranial nerves II through XII are grossly intact
Motor: 5/5 strength bilaterally in upper extremities and lower extremities.
No pronator drift.
Ambulation is steady.
Head is normocephalic atraumatic
Breathing nonlabored
Cardiac: Regular rate
Abdomen is soft
Extremities are warm
Noncontrast CT scan of the head performed on 02/15/2025 was reviewed. Images were personally viewed and interpreted by me. There is a approximately 2.0 cm left frontal hyperdense lesion which could be consistent with calcified meningioma. There is
a similar-appearing lesion along the right tentorium as well. No evidence of adjacent hypodensity is seen to suggest vasogenic edema.
The brain with and without contrast was also performed and reviewed. Images were personally viewed and interpreted by me. There is evidence of a homogeneously enhancing, partially calcified, extra-axial lesion within the left frontal lobe,
consistent most likely with meningioma. There is no evidence of FLAIR signal hyperintensities to suggest vasogenic edema. Patient also has a right posterior tentorial 5.5 mm lesion, likely consistent with meningioma. Lastly, there is a 7 mm right
temporoparietal similar-appearing lesion as well. No evidence of vasogenic edema seen adjacent to these lesions. There is no evidence of hemorrhage associated with easily.
Problems
-
Problem Status Onset Code
Acute dehydration Acute E86.0
Acute hyponatremia Acute E87.1
Acute febrile illness Acute R50.9
Assessment / Plan
-
This is a 54-year-old female with a known history meningioma, who presents with fever, headache, and rash.
Noncontrast CT, and subsequent MRI of the brain confirms multiple meningiomas, without any evidence of pathological findings such as adjacent vasogenic edema, or hemorrhagic conversion.
I thoroughly counseled the patient, and her partner on the imaging findings. And likely these are incidental in nature.
Recommend outpatient follow-up in approximately 3 months. I advised that she obtain prior imaging studies so that we can evaluate these and compare to see if meningiomas have progressed or new.
Patient provided my contact information/business card.
--- NOTE | 2025-02-17 13:27 | W.DCSUMMARY ---
Discharge Summary
Discharge Data
Date of Admission: 02/16/25
Date of Discharge: 02/17/25
Total time spent discharging patient (in min): 56
-
Pending Results: No
Hospital Course
Ms. Rogers is a 54-year-old female with medical history of meningioma (small, not requiring intervention, no recent follow-up) who presented with 3 weeks of headaches with associated nausea. She reported a red speckled rash on her extremities
and trunk which has since resolved. She was found to have a fever with a temperature of 102.8 �F in the ED. She was admitted for further evaluation and management.
Her headaches and fever resolved. Brain imaging showed multiple meningiomas, no prior imaging available for comparison. She was evaluated by neurosurgery who felt these meningiomas were not significantly contributing to her presenting symptoms.
They recommended ongoing outpatient neurosurgical follow-up. Patient did have a moderate hyponatremia with a serum sodium of 126 at time of admission which appears acute based on recent lab work showing a serum sodium of 136. Her sodium levels
resolved to within normal limits. She had no abnormal neurologic symptoms other than her headache, which resolved. Her Lyme screen and Legionella urinary antigens were negative. Peripheral blood smear was normal. She has been instructed to stop
taking her Wegovy for now until she is able to follow-up with her prescribing provider for further discussions about whether or not to continue this medication. At time of hospital discharge she was medically stable. She will need close follow-up
with her primary care physician and with her neurosurgeon.
General: No Apparent Distress, Comfortable and Conversant
HEENT: NormoCephalic, Moist mucous membranes, Atraumatic
Respiratory: Clear and Non Labored Respirations
Cardiac: S1/S2 and Regular Rhythm; No Rub or Gallop
GI: Soft, Non Tender, Non Distended and Normal Bowel Sounds
Musculoskeletal: No Edema, no deformity
Skin: Warm and dry
: NO Mccartney
Neuro: Awake, Alert, Nonfocal/grossly intact
Psych: Calm and Intact Judgment/Insight
Discharge Plan
-
Patient Disposition: Home (Routine Discharge)
Discharge Diagnosis/Procedures: Headache and fever
Activity Restrictions/Additional Instructions:
Ms. Rogers is a 54-year-old female with medical history of meningioma (small, not requiring intervention, no recent follow-up) who presented with 3 weeks of headaches with associated nausea. She reported a red speckled rash on her extremities
and trunk which has since resolved. She was found to have a fever with a temperature of 102.8 �F in the ED. She was admitted for further evaluation and management.
Her headaches and fever resolved. Brain imaging showed multiple meningiomas, no prior imaging available for comparison. She was evaluated by neurosurgery who felt these meningiomas were not significantly contributing to her presenting symptoms.
They recommended ongoing outpatient neurosurgical follow-up. Patient did have a moderate hyponatremia with a serum sodium of 126 at time of admission which appears acute based on recent lab work showing a serum sodium of 136. Her sodium levels
resolved to within normal limits. She had no abnormal neurologic symptoms other than her headache, which resolved. Her Lyme screen and Legionella urinary antigens were negative. Peripheral blood smear was normal. She has been instructed to stop
taking her Wegovy for now until she is able to follow-up with her prescribing provider for further discussions about whether or not to continue this medication. At time of hospital discharge she was medically stable. She will need close follow-up
with her primary care physician and with her neurosurgeon.
Referrals:
Ibrahima Lopez MD [Family Provider, Internal Medicine]
Prescriptions:
Continued
latanoprost 0.005 % Drops
1 drp OPHTHALMIC (EYE) DAILY
metoclopramide HCl [Reglan] 10 mg tablet
10 mg PO Q8HPRN PRN (Reason: nausea and vomiting) Qty: 15 0RF
Held
Wegovy 2.4 mg/0.75 mL Pen Injector
2.4 mg SC QWEEK
Hold Instructions: Hold until further discussion with prescribing provider
Discharge Orders:
Discharge Patient (As Directed); Ordered 02/17/25
Ordered By: Alan Jasmine
Discharge Date and Time
Print Language: TAJIK
== END 2025-02-17 15:29 | disposition home or self-care (01) | DRG 55 ==
LOC: 4 EAST ACU 03:03
PROVIDERS: Emergency Medicine; ADMITTING PHYSICIAN Hospitalist; ATTENDING PHYSICIAN Internal Medicine; EMERGENCY PHYSICIAN Emergency Medicine; FAMILY PHYSICIAN Internal Medicine; OTHER PHYSICIAN Neurological Surgery
DX: D32.0 Benign neoplasm of cerebral meninges (principal); E87.1 Hypo-osmolality and hyponatremia; E87.6 Hypokalemia; E86.0 Dehydration; F41.9 Anxiety disorder, unspecified; Z87.891 Personal history of nicotine dependence; Z90.710 Acquired absence of both cervix and uterus
CPT/HCPCS: 70450; 70553; 71046; 80048; 80053; 81003; 81015; 82550; 83605; 83615; 83690; 83735; 83935; 84100; 84300; 84443; 85025; 85027; 86618; 87015; 87040; 87086; 87207; 87449; 87502; 87811; 87899; 96360; 99285; 99406; A9575